=== PATIENT | male | born 1995 | race Two or more races ===

== ENCOUNTER 2019-01-08 22:56 | Emergency (ER) | payer OTHER ==
[~2019-01-08] VITALS: Ht 175.3 cm; Wt 68.0 kg
[2019-01-08] MEDS ORDERED: XYZAL5 MG PO (23:51)
[2019-01-08] MEDS ORDERED: BACTRIM DS TAB1 EACH PO (23:51)
== END 2019-01-08 23:56 | disposition home or self-care (01) ==
LOC: ER 22:56
DX: L03.115 Cellulitis of right lower limb (principal)